=== PATIENT | male | born 1995 | race Caucasian/White ===

== ENCOUNTER 2021-10-22 11:29 | Emergency (ER) | payer BC ==
[~2021-10-22] VITALS: Ht 180.3 cm; Wt 102.1 kg
[2021-10-22 11:45] VITALS: BP_SYST 146
--- NOTE | 2021-10-22 11:45 | NUR ---
Pt to remain in tent for evaluation.
--- NOTE | 2021-10-22 11:50 | NUR ---
Pt AAO and ambulatory reporting that he is Covid positive and sent here from [facility] for regeneron. Pt reports sore throat and change of taste and smell. Pt is healthy looking and has no prior medical history.
--- NOTE | 2021-10-22 11:50 | NUR ---
Dr. Plunkett to tent to assess patient.
[2021-10-22] MEDS ORDERED: IBUP-1971 PO (11:51)
[2021-10-22] MEDS ORDERED: PRED20TA PO (11:51)
[2021-10-22 12:04] VITALS: BP_SYST 146
--- NOTE | 2021-10-22 12:05 | NUR ---
Patient given written and verbal discharge instructions and verbalizes understanding. ER MD Dr. Plunkett discussed with patient the results and treatment provided. Patient in stable condition. ID arm band removed. Rx of motrin and prednisone given. Patient educated on pain management and to follow up with PMD. Pain Scale 0/10. Opportunity for questions provided and answered. Medication side effect fact sheet provided.
== END 2021-10-22 12:04 | disposition home or self-care (01) ==
LOC: SED 11:29
DX: U07.1 COVID-19 (principal); J02.8 Acute pharyngitis due to other specified organisms
CPT/HCPCS: 99283